=== PATIENT | female | born 1950 | race Caucasian/White ===

== ENCOUNTER 2022-11-09 20:07 | Inpatient (IN) | payer MEDICARE, MEDICAID, SELFPAY ==
--- NOTE | ~2022-11-09 | XR_ITS ---
EXAMINATION: XR CHEST CLINICAL INFORMATION: Hypoxia. COMPARISON: November 09, 2022. TECHNIQUE: Portable AP view of the chest was obtained. XR/XR chest 1V FINDINGS/IMPRESSION: There is no acute radiographic finding. No focal infiltrate, effusion, pneumothorax is seen. There is a question of mild prominence of the pulmonary veins in their nondependent portions, raising the possibility of pulmonary venous hypertension. The lungs may be mildly hyperinflated, raising the possibility of COPD. The cardiac silhouette is poorly evaluated. The aorta is atherosclerotic. Mild thoracic spinal dextrocurvature.
--- NOTE | ~2022-11-09 | XR_ITS ---
EXAMINATION: XR CHEST CLINICAL INFORMATION: Fever and confusion. COMPARISON: Chest x-ray 04/27/2018 TECHNIQUE: 2 views of the chest were obtained. FINDINGS: Hyperinflation of lungs. No acute airspace disease. No pulmonary vascular congestion. No pleural effusion or pneumothorax. Heart size is normal. The cardiac and mediastinal contours are normal. XR/XR chest 2V IMPRESSION: Hyperinflation of lungs. No acute abnormality of chest.
--- NOTE | ~2022-11-09 | CT_ITS ---
EXAMINATION: CT HEAD WITHOUT CONTRAST CLINICAL INFORMATION: Altered mental status. COMPARISON: 04/27/2018 TECHNIQUE: Multidetector volumetric imaging of the head was performed without intravenous contrast material. This CT examination was performed using dose optimization techniques as appropriate, variously including the following: *Automated exposure control *Adjustment of mA and/or kV according to patient size (this includes techniques or standardized protocols for targeted exams where dose is matched to indication/reason for exam; i.e. extremities or head) *Use of iterative reconstruction technique Dose: 600 mGy-cm FINDINGS: There is no evidence of acute intracranial hemorrhage or territorial infarction. No abnormal mass-effect or midline shift is seen. [place] to white matter differentiation is well preserved. No extra axial fluid collections. There is relative prominence of the lateral and third ventricles, out of portion to the cortical sulci. Callosal angle measures 70 degrees . Marked confluent hypoattenuation in the subcortical and periventricular white matter may be due to chronic microangiopathy or, alternatively, transependymal CSF flow. Small bilateral basal ganglia lacunar infarcts are again noted. Calcific atherosclerosis is present within the cavernous segments of the internal carotid arteries. The soft tissues and osseous structures are normal. Globes are aphakic. The sinuses and mastoid air cells are clear. CT/CT head/brain wo IV con IMPRESSION: 1. No acute intracranial pathology. 2. Ventricular prominence is out of proportion to the cortical sulci, raising the possibility of related to indicate hydrocephalus (NPH). Consider correlation with MRI CSF flow study if this correlates clinically. 3. Marked confluent hypoattenuation in the subcortical and periventricular white matter may be due to chronic microangiopathy or, alternatively, transependymal CSF flow.
--- NOTE | 2022-11-09 20:11 | ECG_ITS ---
Test Reason : AMS Blood Pressure : / mmHG Vent. Rate : 095 BPM Atrial Rate : 095 BPM P-R Int : 100 ms QRS Dur : 084 ms QT Int : 330 ms P-R-T Axes : 076 064 -30 degrees QTc Int : 414 ms Artifact in tracing Sinus rhythm with short MD with Premature supraventricular complexes Minimal voltage criteria for LVH, may be normal variant ( Sokolow-Guzman ) ST & T wave abnormality, consider lateral ischemia Abnormal ECG When compared with ECG of 27-APR-2018 12:11, Premature supraventricular complexes are now Present Non-specific change in ST segment in Inferior leads Nonspecific T wave abnormality now evident in Inferior leads Referred By: Aubree Pires Electronically Signed By:Tommie Coffey
[2022-11-09 20:23] VITALS: BP 186/85; BP 187/90; PULSE 86; PULSE 91; RESP 20; TEMP 37.6; O2SAT 95; O2SAT 97; BMI 18.2
--- NOTE | 2022-11-09 20:31 | PC.NURSE ---
PT A&Ox4, reports granddaughter called EMS but states I'm feeling fine . Per granddaughter PT was feeling warm to touch, was having some confusion and weakness, onset was today. PT oral temp 99.6. Denies any pain. 87% on RA, placed on 2L via NC. Recheck rectal temp 100.2. Provider notified. New orders.
[2022-11-09 20:59] LABS: MANUAL DIFF FLAG NO
[2022-11-09 21:02] LABS: Basophils Percent Auto 0.9 % (0-2); Eosinophils Percent Auto 0.7 % (0-4); Hematocrit 43.6 % (37.0-47.0); Imm Gran Abs Auto 0.01 X10*3/uL (0.00-0.03); Imm Gran Pct Auto 0.2 % (0.0-0.4); Lymphocytes Absolute Auto 0.7 X10*3/uL (1.2-4.9); Mean Corpuscular HGB Conc 32.1 g/dl (31.0-35.0); Mean Corpuscular Hemoglobin 30.8 pg (27.0-33.0); Mean Platelet Volume 9.8 fL (9.4-12.3); Monocytes Absolute Auto 0.7 X10*3/uL (0.1-1.2); Monocytes Percent Auto 14.4 % (2-11); Neutrophils Absolute Auto 3.2 x10*3/uL (2.0-8.3); Neutrophils Percent Auto 68.8 % (45-73); Platelet Count 200 X10*3/uL (160-400); Red Blood Count 4.54 X10*6/uL (4.20-5.50); Red Cell Distribution Width 13.3 % (11.0-16.0); White Blood Count 4.6 X10*3/uL (4.8-10.8)
--- NOTE | 2022-11-09 21:10 | ED.AMS ---
HPI - Altered Mental Status General Chief Complaint: Altered Mental Status Stated Complaint: fever and confusion Time Seen by Provider: 11/09/22 20:46 Source: patient and family (Granddaughter) Mode of arrival: EMS History of Present Illness HPI narrative: 72-year-old female who is brought in by ambulance with concerns regarding increased confusion and shaking. Patient has a past medical history of everyday smoker, COPD, hypertension, UTI and stroke. On evaluation patient denies any fever chills, nausea or vomiting, shortness of breath or chest pain but states she has had urinary frequency. Related Data Allergies Allergy/AdvReac Type Severity Reaction Status Date / Time No Known Allergies Allergy Unverified 06/23/20 19:31 [No Known Allergies*] Review of Systems Review of Systems: Pertinent positives and negatives as stated in HPI PMFSH Past Medical History Source: nursing notes reviewed Social History Social History Alcohol intake: current Alcohol intake frequency: 0-2 drinks per day Alcohol type: beer Smoked in Last 30 Days: Yes Use of substances other than those prescribed or required for medical reasons: No Advance Directives: No Advance Directives Information Provided: No Physical Exam ED Vital Signs: Vital Signs - 24 hr 11/09/22 20:23 11/09/22 21:30 Temperature 99.6 F 100.2 F Pulse Rate 91 96 Respiratory Rate 20 20 Blood Pressure 187/90 H 192/121 H Pulse Oximetry 97 91 L Oxygen Delivery Method Nasal Cannula Room Air BMI result Body Mass Index 18.2 VITAL SIGNS: Reviewed. GENERAL: Chronically ill, frail, in no acute distress. HEAD: Normocephalic/atraumatic EYES: PERRLA, EOMI EARS: Ext canals without abnormality OROPHARYNX: no oral lesions noted, posterior pharynx clear LUNGS: Decreased breath sounds on the right base, no tachypnea, no expiratory wheeze/rhonchi SpO2<97> on room air CARDIOVASCULAR: Regular rate and rhythm without noted murmurs, no JVD or lower extremity edema. ABDOMEN: Soft, non-tender, non-distended with bowel sounds. MUSCULOSKELETAL: No tenderness, deformities, or effusions noted on gross inspection. EXTREMITIES: No cyanosis, clubbing or edema. SKIN: Inspection of the skin reveals no rashes NEUROLOGIC: Alert and oriented x 3. Strength and sensation to light touch were grossly intact x 4, no facial asymmetry, no pronator drift, cranial nerves 2-12 are grossly intact. Medications Administered Generic Name Dose Route Start Last Admin Trade Name Freq PRN Reason Stop Dose Admin Sodium Chloride 1,000 mls @ 999 mls/hr 11/09/22 21:15 11/09/22 21:39 Ns IV 11/09/22 22:15 999 mls/hr .Q1H1M JUAN Administration Discontinued Medications Generic Name Dose Route Start Last Admin Trade Name Freq PRN Reason Stop Dose Admin Acetaminophen 975 mg 11/09/22 21:43 11/09/22 21:48 Acetaminophen 325 Mg Tablet PO 11/09/22 21:44 975 mg ONCE ONE Administration Amlodipine Besylate 5 mg 11/09/22 21:20 11/09/22 21:34 Amlodipine Besylate 5 Mg Tablet PO 11/09/22 21:21 5 mg ONCE ONE Administration Protocol Medical Decision Making Medical Decision Making MDM Narrative: 2113: 72-year-old female with suspected infection, nonfocal. Review of all investigations my interpretation is patient has AMS, COVID positive, UTI. Patient received antibiotics as well as IV fluids and is otherwise admitted. Differential Diagnosis Differential Diagnoses: The differential diagnosis associated with the presentation includes Please see the discussion above Admission/Observation Consideration of admission/observation: Escalation of care including admission/observation considered Due to age and comorbidities will consider admission. Consult Healthcare Provider Management of the patient was discussed with: Hospitalist 2200: I discussed case with inpatient hospitalist who accepts admission. Lab Data MDM Lab Attestation statement: I reviewed the patient's lab results. Please see the discussion above 11/09/22 20:53 11/09/22 20:53 Labs: Lab Results 11/09/22 11/09/22 11/09/22 Range/Units 20:44 20:53 20:53 WBC 4.6 L (4.8-10.8) X10*3/uL RBC 4.54 (4.20-5.50) X10*6/uL Hgb 14.0 (12.0-16.0) g/dl Hct 43.6 (37.0-47.0) % MCV 96.0 (80.0-98.0) fL MCH 30.8 (27.0-33.0) pg MCHC 32.1 (31.0-35.0) g/dl RDW 13.3 (11.0-16.0) % Plt Count 200 (160-400) X10*3/uL MPV 9.8 (9.4-12.3) fL Immature Gran % (Auto) 0.2 (0.0-0.4) % Neut % (Auto) 68.8 (45-73) % Lymph % (Auto) 15.0 L (20-40) % [place] % (Auto) 14.4 H (2-11) % Eos % (Auto) 0.7 (0-4) % Baso % (Auto) 0.9 (0-2) % Lymph # (Auto) 0.7 L (1.2-4.9) X10*3/uL [place] # (Auto) 0.7 (0.1-1.2) X10*3/uL Eos # (Auto) 0.0 (0.0-0.4) X10*3/uL Baso # (Auto) 0.0 (0.0-0.2) X10*3/uL Abs Immat Gran (auto) 0.01 (0.00-0.03) X10*3/uL Absolute Neuts (auto) 3.2 (2.0-8.3) x10*3/uL Absolute Nucleated RBC 0.000 (0.0-0.012) X10*3/uL Nucleated RBC % (auto) 0.0 (0.0-0.2) /100WBC VBG pH (7.32-7.43) VBG pCO2 mmHg VBG pO2 mmHg VBG HCO3 (22-26) mmol/L VBG O2 Saturation % VBG Base Excess mmol/L Sodium (135-145) mmol/L Potassium (3.3-5.1) mmol/L Chloride (96-108) mmol/L Carbon Dioxide (22-29) mmol/L Anion Gap (12-20) BUN (9-16) mg/dL Creatinine (0.5-1.4) mg/dL Estim Creat Clear Calc Estimated GFR Random Glucose (60-115) mg/dL Lactic Acid 0.8 (0.5-2.0) mmol/L Calcium (8.4-10.2) mg/dL Magnesium (1.6-2.6) mg/dL Total Bilirubin (0.0-1.0) mg/dL AST (5-31) U/L ALT (0-31) U/L Alkaline Phosphatase (39-117) U/L Total Protein (6.5-8.0) g/dL Albumin (3.5-5.0) g/dL Urine Color Urine Appearance Urine pH (5.0-9.0) Ur Specific [place] (1.005-1.025) Urine Protein (Neg-Trace) mg/dL Urine Glucose (UA) (Negative) mg/dL Urine Ketones (Negative) mg/dL Urine Blood (Negative) Urine Nitrite (Negative) Ur Leukocyte Esterase (Negative) Urine RBC (0-2) /HPF Urine WBC (0-5) /HPF Ur Squamous Epith Cells (0-2) /HPF Urine Bacteria (None Seen) Hyaline Casts (0-2) /LPF Influenza Type A (PCR) NEGATIVE (Negative) Influenza Type B (PCR) NEGATIVE (Negative) RSV RNA Qual (PCR) NEGATIVE (Negative) SARS-CoV-2 RNA (RT-PCR) POSITIVE A (Negative) 11/09/22 11/09/22 11/09/22 Range/Units 20:53 21:26 21:29 WBC (4.8-10.8) X10*3/uL RBC (4.20-5.50) X10*6/uL Hgb (12.0-16.0) g/dl Hct (37.0-47.0) % MCV (80.0-98.0) fL MCH (27.0-33.0) pg MCHC (31.0-35.0) g/dl RDW (11.0-16.0) % Plt Count (160-400) X10*3/uL MPV (9.4-12.3) fL Immature Gran % (Auto) (0.0-0.4) % Neut % (Auto) (45-73) % Lymph % (Auto) (20-40) % [place] % (Auto) (2-11) % Eos % (Auto) (0-4) % Baso % (Auto) (0-2) % Lymph # (Auto) (1.2-4.9) X10*3/uL [place] # (Auto) (0.1-1.2) X10*3/uL Eos # (Auto) (0.0-0.4) X10*3/uL Baso # (Auto) (0.0-0.2) X10*3/uL Abs Immat Gran (auto) (0.00-0.03) X10*3/uL Absolute Neuts (auto) (2.0-8.3) x10*3/uL Absolute Nucleated RBC (0.0-0.012) X10*3/uL Nucleated RBC % (auto) (0.0-0.2) /100WBC VBG pH 7.32 (7.32-7.43) VBG pCO2 59 mmHg VBG pO2 38 mmHg VBG HCO3 31 H (22-26) mmol/L VBG O2 Saturation 49.0 % VBG Base Excess 3.7 mmol/L Sodium 138 (135-145) mmol/L Potassium 4.6 (3.3-5.1) mmol/L Chloride 100 (96-108) mmol/L Carbon Dioxide 25 (22-29) mmol/L Anion Gap 18 (12-20) BUN 26 H (9-16) mg/dL Creatinine 0.80 (0.5-1.4) mg/dL Estim Creat Clear Calc 45.6 Estimated GFR > 60 Random Glucose 112 (60-115) mg/dL Lactic Acid (0.5-2.0) mmol/L Calcium 9.3 (8.4-10.2) mg/dL Magnesium 2.0 (1.6-2.6) mg/dL Total Bilirubin 0.5 (0.0-1.0) mg/dL AST 29 (5-31) U/L ALT 18 (0-31) U/L Alkaline Phosphatase 92 (39-117) U/L Total Protein 7.4 (6.5-8.0) g/dL Albumin 4.3 (3.5-5.0) g/dL Urine Color Yellow Urine Appearance Cloudy Urine pH 6.0 (5.0-9.0) Ur Specific [place] 1.015 (1.005-1.025) Urine Protein 30 (1+) H (Neg-Trace) mg/dL Urine Glucose (UA) Negative (Negative) mg/dL Urine Ketones Trace (Negative) mg/dL Urine Blood Trace H (Negative) Urine Nitrite Positive H (Negative) Ur Leukocyte Esterase Moderate (2+) H (Negative) Urine RBC >20 H (0-2) /HPF Urine WBC 11-20 H (0-5) /HPF Ur Squamous Epith Cells 11-20 (0-2) /HPF Urine Bacteria 4+ (None Seen) Hyaline Casts 0-2 (0-2) /LPF Influenza Type A (PCR) (Negative) Influenza Type B (PCR) (Negative) RSV RNA Qual (PCR) (Negative) SARS-CoV-2 RNA (RT-PCR) (Negative) Independent Interpretation I performed an independent interpretation of an: EKG Interpretation: Sinus rhythm, HR-95, no STEMI, NE/QRS/QTC are within normal limits. Radiology Impression Radiologist Impression: My interpretation is in agreement with radiology's impression of the imaging studies. Chronic Conditions Patient?s care impacted by: Hypertension COPD Critical Care Time Critical Care Time Critical Care Time: Yes Total Critical Care Time: 30 Attestation: I personally attest to this time spent taking care of the patient. Discharge Plan Discharge Clinical Impression: Altered mental status, Lab test positive for detection of COVID-19 virus, Acute UTI Patient Disposition: Admitted As Inpatient
[2022-11-09 21:11] LABS: Lactic Acid 0.8 mmol/L (0.5-2.0)
[2022-11-09 21:19] LABS: Alanine Aminotransferase 18 U/L (0-31); Albumin Level 4.3 g/dL (3.5-5.0); Alkaline Phosphatase 92 U/L (39-117); Anion Gap 18 (12-20); Aspartate Amino Transferase 29 U/L (5-31); Bilirubin Total 0.5 mg/dL (0.0-1.0); Blood Urea Nitrogen 26 mg/dL (9-16); Calcium 9.3 mg/dL (8.4-10.2); Carbon Dioxide 25 mmol/L (22-29); Chloride 100 mmol/L (96-108); Creatinine Clr Calc Pharmacy 45.6; Estimated Glomerular Filt Rate > 60; Glucose Random 112 mg/dL (60-115); Potassium 4.6 mmol/L (3.3-5.1); Sodium 138 mmol/L (135-145); Total Protein 7.4 g/dL (6.5-8.0)
[2022-11-09 21:27] LABS: Influenza A PCR NEGATIVE (Negative); Influenza B PCR NEGATIVE (Negative); Resp Syncy Virus RNA Qual PCR NEGATIVE (Negative); SARS COV2 PCR INHOUSE POSITIVE (Negative)
[2022-11-09 21:30] VITALS: BP 192/121; PULSE 96; RESP 20; TEMP 37.9; O2SAT 91
[2022-11-09 21:32] LABS: Venous Blood Gas Refer to POC result
[2022-11-09 21:32] LABS: VBG Base Excess 3.7 mmol/L; VBG HCO3 31 mmol/L (22-26); VBG pCO2 59 mmHg; VBG pH 7.32 (7.32-7.43); VBG pO2 38 mmHg
[2022-11-09] MEDS: amLODIPine Besylate 5 MG TABLET PO (21:34)
[2022-11-09 21:36] LABS: Appearance Urine Cloudy; Color Urine Yellow; Glucose Urine UA Negative (Negative); Leukocyte Esterase Urine Moderate (2+) (Negative); Nitrite Urine Positive (Negative); Specific Gravity - Urine 1.015 (1.005-1.025); UMIC TRIGGER UACC YES; Urine Blood Trace (Negative); Urine Ketones Trace mg/dL (Negative); Urine Protein 30 (1+) mg/dL (Neg-Trace)
[2022-11-09] MEDS: 0.9 % Sodium Chloride 1,000 ML 999 ML IV (21:39)
[2022-11-09 21:46] LABS: RBC Urine >20 /HPF (0-2)
[2022-11-09 21:47] LABS: Bacteria Urine 4+ (None Seen); Hyaline Casts Urine 0-2 /LPF (0-2); UACC Culture Trigger YES
[2022-11-09] MEDS: Acetaminophen 325 MG TABLET 975 MG PO (21:48)
--- NOTE | 2022-11-09 22:15 | PM.IMHP ---
History of Present Illness Date of Service: 11/09/22 Chief Complaint: Altered mentation This is a 72-year-old female with pertinent history of mood disorder, essential hypertension, COPD not on home oxygen, mixed hyperlipidemia who was brought to the emergency department for evaluation of confusion. As per the grand daughter at bedside, patient was found to be confused throughout the day. At her baseline, patient is awake, alert and oriented x3. The patient does not know why she is in the hospital and reports no new complaints. The granddaughter endorses increased urinary frequency. Patient also had fevers and chills throughout the day. No shortness of breath. Unable to obtain review of systems. Review of Systems Review of Systems: Yes Unobtainable due to mental condition [facility] Medical History COPD (chronic obstructive pulmonary disease) Hyperlipidemia Hypertension Mood disorder Pertinent family history: Not significant Social History Alcohol intake: current Alcohol intake frequency: 0-2 drinks per day Alcohol type: beer Smoked in Last 30 Days: Yes Use of substances other than those prescribed or required for medical reasons: No Advance Directives: No Advance Directives Information Provided: No Meds Allergies Allergy/AdvReac Type Severity Reaction Status Date / Time No Known Allergies Allergy Unverified 06/23/20 19:31 [No Known Allergies*] Active Medications: Current Medications Acetaminophen (Acetaminophen 325 Mg Tablet) 650 mg PO Q6H PRN PRN Reason: Pain, Mild (Pain Scale 1-3) Albuterol/Ipratropium (Albuterol/Iprat 2.5/0.5mg 3 Ml Ampul.Neb) 3 ml INHALE RQ4H WHILE AWAKE JUAN Dexamethasone Sodium Phosphate (Dexamethasone Sod Phosphate 4 Mg/Ml Vial) 6 mg IVPUSH DAILY JUAN Enoxaparin Sodium (Enoxaparin Sodium 40 Mg/0.4 Ml Syringe) 40 mg SUBCUT Q24H JUAN Ceftriaxone Sodium 1 gm/ (Sodium Chloride) 50 mls @ 100 mls/hr IV ONCE ONE Stop: 11/09/22 22:18 Ceftriaxone Sodium 1 gm/ (Sodium Chloride) 50 mls @ 100 mls/hr IV Q24H JUAN Melatonin (Melatonin 3 Mg Tablet) 6 mg PO BEDTIME PRN PRN Reason: Insomnia Ondansetron HCl (Ondansetron Hcl 4 Mg/2 Ml Vial) 4 mg IVPUSH Q8H PRN PRN Reason: Nausea and Vomiting Pharmacy Consult (Consult Rx Perform Med Rec) 1 each MISCELLANE ONCE PRN PRN Reason: Consult order Sodium Chloride (0.9 % Sodium Chloride Flush 3 Ml Syringe) 3 ml IVFLUSH [facility] Medications Medication Instructions Recorded Confirmed Last Taken Type buspirone 5 mg tablet 1 - 2 tab PO BID 11/09/22 11/09/22 Unknown History lisinopril 20 mg tablet 1 tab PO DAILY 11/09/22 11/09/22 Unknown History simvastatin 80 mg tablet 1 tab PO BEDTIME 11/09/22 11/09/22 Unknown History Physical Exam Vital Signs and Narrative: Vital Signs: Last Vital Signs Temp 100.2 F 11/09/22 21:30 Pulse 96 11/09/22 21:30 Resp 20 11/09/22 21:30 BP 192/121 H 11/09/22 21:30 Pulse Ox 91 L 11/09/22 21:30 O2 Del Method 11/09/22 21:30 Oxygen Flow Rate 2 11/09/22 20:23 BMI result Body Mass Index 18.2 Elderly female lying in bed on 2 L supplemental oxygen Neck supple, no JVD Regular rate and rhythm, S1-S2 heard Regular breath sounds bilaterally, no wheezing or crackles appreciated Abdomen soft nontender, no guarding, no rigidity Patient is awake, alert and oriented to self, place, disoriented to time and person ; no focal motor deficit Psych: Normal mood No pedal edema Results Labs 11/09/22 20:53 11/09/22 20:53 Labs: Laboratory Results - last 24 hr 11/09/22 11/09/22 11/09/22 20:44 20:53 20:53 MCV 96.0 MCH 30.8 MCHC 32.1 RDW 13.3 Plt Count 200 MPV 9.8 Immature Gran % (Auto) 0.2 Neut % (Auto) 68.8 Lymph % (Auto) 15.0 L [place] % (Auto) 14.4 H Eos % (Auto) 0.7 Baso % (Auto) 0.9 Lymph # (Auto) 0.7 L [place] # (Auto) 0.7 Eos # (Auto) 0.0 Baso # (Auto) 0.0 Abs Immat Gran (auto) 0.01 Absolute Neuts (auto) 3.2 Absolute Nucleated RBC 0.000 Nucleated RBC % (auto) 0.0 VBG pH VBG pCO2 VBG pO2 VBG HCO3 VBG O2 Saturation VBG Base Excess Anion Gap Estim Creat Clear Calc Estimated GFR Random Glucose Lactic Acid 0.8 Calcium Magnesium Total Bilirubin AST ALT Alkaline Phosphatase Total Protein Albumin Urine Color Urine Appearance Urine pH Ur Specific [place] Urine Protein Urine Glucose (UA) Urine Ketones Urine Blood Urine Nitrite Ur Leukocyte Esterase Urine RBC Urine WBC Ur Squamous Epith Cells Urine Bacteria Hyaline Casts Influenza Type A (PCR) NEGATIVE Influenza Type B (PCR) NEGATIVE RSV RNA Qual (PCR) NEGATIVE SARS-CoV-2 RNA (RT-PCR) POSITIVE A 11/09/22 11/09/22 11/09/22 20:53 21:26 21:29 MCV MCH MCHC RDW Plt Count MPV Immature Gran % (Auto) Neut % (Auto) Lymph % (Auto) [place] % (Auto) Eos % (Auto) Baso % (Auto) Lymph # (Auto) [place] # (Auto) Eos # (Auto) Baso # (Auto) Abs Immat Gran (auto) Absolute Neuts (auto) Absolute Nucleated RBC Nucleated RBC % (auto) VBG pH 7.32 VBG pCO2 59 VBG pO2 38 VBG HCO3 31 H VBG O2 Saturation 49.0 VBG Base Excess 3.7 Anion Gap 18 Estim Creat Clear Calc 45.6 Estimated GFR > 60 Random Glucose 112 Lactic Acid Calcium 9.3 Magnesium 2.0 Total Bilirubin 0.5 AST 29 ALT 18 Alkaline Phosphatase 92 Total Protein 7.4 Albumin 4.3 Urine Color Yellow Urine Appearance Cloudy Urine pH 6.0 Ur Specific [place] 1.015 Urine Protein 30 (1+) H Urine Glucose (UA) Negative Urine Ketones Trace Urine Blood Trace H Urine Nitrite Positive H Ur Leukocyte Esterase Moderate (2+) H Urine RBC >20 H Urine WBC 11-20 H Ur Squamous Epith Cells 11-20 Urine Bacteria 4+ Hyaline Casts 0-2 Influenza Type A (PCR) Influenza Type B (PCR) RSV RNA Qual (PCR) SARS-CoV-2 RNA (RT-PCR) Imaging Radiologist's Impressions: Impressions Chest X-Ray 11/09/22 20:38 IMPRESSION: Hyperinflation of lungs. No acute abnormality of chest. Head CT 11/09/22 21:03 IMPRESSION: 1. No acute intracranial pathology. 2. Ventricular prominence is out of proportion to the cortical sulci, raising the possibility of related to indicate hydrocephalus (NPH). Consider correlation with MRI CSF flow study if this correlates clinically. 3. Marked confluent hypoattenuation in the subcortical and periventricular white matter may be due to chronic microangiopathy or, alternatively, transependymal CSF flow. Assessment and Plan (1) Hypoxic: Status: Acute (2) Acute UTI: Status: Acute (3) Lab test positive for detection of COVID-19 virus: Status: Acute (4) Altered mental status: Status: Acute Plan This is a 72-year-old female with pertinent history of mood disorder, essential hypertension, COPD not on home oxygen, mixed hyperlipidemia who was brought to the emergency department for evaluation of confusion. #. Acute hypoxemic respiratory failure secondary to COVID-19 infection: Will admit patient with airborne and contact precautions. Initiating Decadron in the setting of hypoxemia. No concern for bacterial superinfection. #. Acute UTI: Initiating IV Rocephin. Follow urine cultures #. acute metabolic encephalopathy in the setting of above: #. Hypertensive urgency: Resume home antihypertensives #. imaging evidence of ventricular prominence: Obtaining MRI to rule out NPH #. mood disorder: Continue home mood stabilizers #. mixed hyperlipidemia: On statin #. COPD: No exacerbation on admission. Continue home inhaler. DuoNeb p.r.n. med rec pending DVT prophylaxis: Lovenox 40 mg daily Full code. Discussed with patient and granddaughter at bedside Cardiac diet Admit as inpatient and will require two night minimum hospital stay for IV antibiotics and supplemental oxygen Time Spent With Patient Time: Total time managing care of this patient today ____ minutes. Quality Stroke Does the patient have a stroke diagnosis?: No VTE Prior VTE?: No VTE Risk Level:: Medical - moderate - high VTE Device Contraindication: Treatment Not Indicated VTE Drug Contraindication: N/A - Med Ordered
[2022-11-09] MEDS: cefTRIAXone sodium 1 GM in 0.9 % Sodium Chloride 50 ML IV (22:28)
[2022-11-09] MEDS: dexAMETHasone sod phosphate 4 MG/ML VIAL 6 MG IVPUSH (22:28)
--- NOTE | 2022-11-09 22:29 | PHA.MEDREC ---
Pharmacy Consult ? Medication Reconciliation Pharmacy has completed the medication reconciliation.
[2022-11-09 22:30] VITALS: BP 185/89; PULSE 94; RESP 18; TEMP 36.7; O2SAT 95
[2022-11-09] MEDS: Labetalol HCL 100 MG/20 ML VIAL 10 MG IVPUSH (22:32)
[2022-11-09 22:42] VITALS: BP 142/69; PULSE 77; RESP 18; O2SAT 94
[2022-11-09 23:11] VITALS: TEMP 36.7
--- NOTE | 2022-11-09 23:50 | PC.NURSE ---
PT declined levonox in inection. States I don't want another needle .
[2022-11-10] VITALS (13 sets, daily range): BP systolic 136–154; BP diastolic 70–94; PULSE 71–92; RESP 14–24; TEMP 36.4–36.8; O2SAT 86–98
[2022-11-10] MEDS: 0.9 % Sodium Chloride Flush 3 ML SYRINGE IVFLUSH ×3 (00:18→18:16)
--- NOTE | 2022-11-10 05:30 | PC.NURSE ---
PT resting comfortably, denies any pain. Oxygen titrated to 1L via NC, o2 sat 93%.
[2022-11-10 05:45] LABS: MANUAL DIFF FLAG NO
[2022-11-10 05:49] LABS: Basophils Percent Auto 0.6 % (0-2); Hematocrit 39.8 % (37.0-47.0); Hemoglobin 12.7 g/dl (12.0-16.0); Imm Gran Abs Auto 0.01 X10*3/uL (0.00-0.03); Imm Gran Pct Auto 0.3 % (0.0-0.4); Lymphocytes Absolute Auto 0.6 X10*3/uL (1.2-4.9); Lymphocytes Percent Auto 17.4 % (20-40); Mean Corpuscular HGB Conc 31.9 g/dl (31.0-35.0); Mean Corpuscular Hemoglobin 30.6 pg (27.0-33.0); Mean Corpuscular Volume 95.9 fL (80.0-98.0); Mean Platelet Volume 9.9 fL (9.4-12.3); Monocytes Absolute Auto 0.2 X10*3/uL (0.1-1.2); Monocytes Percent Auto 5.5 % (2-11); Neutrophils Absolute Auto 2.8 x10*3/uL (2.0-8.3); Neutrophils Percent Auto 76.2 % (45-73); Platelet Count 182 X10*3/uL (160-400); Red Blood Count 4.15 X10*6/uL (4.20-5.50); Red Cell Distribution Width 13.2 % (11.0-16.0); White Blood Count 3.6 X10*3/uL (4.8-10.8)
[2022-11-10 06:05] LABS: Anion Gap 12 (12-20); Blood Urea Nitrogen 19 mg/dL (9-16); Calcium 8.4 mg/dL (8.4-10.2); Carbon Dioxide 26 mmol/L (22-29); Chloride 106 mmol/L (96-108); Creatinine Clr Calc Pharmacy 51.3; Estimated Glomerular Filt Rate > 60; Glucose Random 162 mg/dL (60-115); Potassium 4.1 mmol/L (3.3-5.1); Sodium 140 mmol/L (135-145)
[2022-11-10] MEDS: dexAMETHasone sod phosphate 4 MG/ML VIAL 6 MG IVPUSH (08:24)
--- NOTE | 2022-11-10 08:31 | PC.NURSE ---
pt is a/o x 2 speaks in full sentences. lungs - diminshed all lobes. heart sounds - regular. abd soft and non-tender, bs + x 4 quads. no edema noted. 02 at 1L/m via n/c at 94%. pt's grand-daughter is at bedside. pt/grand-daughter aware of plan of care.
[2022-11-10] MEDS: Albuterol/Iprat 2.5/0.5MG 3 ML AMPUL.NEB INHALE (09:53)
--- NOTE | 2022-11-10 10:31 | HO.PM.IMPN ---
Subjective Subjective Date of Service: 11/10/22 Review of Systems Follow up confusion, UTI feeling better today denies N,V,D Physical Exam Vital Signs: Vital Signs: Last Vital Signs Temp 97.6 F 11/10/22 07:21 Pulse 75 11/10/22 10:01 Resp 16 11/10/22 10:01 BP 151/94 H 11/10/22 10:01 Pulse Ox 98 11/10/22 10:01 O2 Del Method 11/10/22 10:01 O2 Flow Rate 0.5 11/10/22 07:21 Oxygen Flow Rate 2 11/09/22 20:23 BMI result Body Mass Index 18.2 Appearing in no acute distress lung sounds are clear to auscultation heart regular rate rhythm, clear S1, S2 positive bowel sounds, abdomen is soft, nontender neuro patient is alert x3, no focal deficits Objective Data Active Medications Acetaminophen (Acetaminophen 325 Mg Tablet) 650 mg PO Q6H PRN PRN Reason: Pain, Mild (Pain Scale 1-3) Albuterol Sulfate (Albuterol Sulfate 90 Mcg 8 Gm Inhaler) 2 puff INHALE RQ4H PRN PRN Reason: Wheezing Buspirone HCl (Buspirone Hcl 5 Mg Tablet) 5 mg PO BID [facility] Dexamethasone Sodium Phosphate (Dexamethasone Sod Phosphate 4 Mg/Ml Vial) 6 mg IVPUSH DAILY [facility] Last Admin: 11/10/22 08:24 Dose: 6 mg Documented By: NEHEMIAH Enoxaparin Sodium (Enoxaparin Sodium 40 Mg/0.4 Ml Syringe) 40 mg SUBCUT Q24H [facility] Last Admin: 11/09/22 23:45 Dose: Not Given Documented By: NABEEL Non-Admin Reason: Patient Refused Ceftriaxone Sodium 1 gm/ (Sodium Chloride) 50 mls @ 100 mls/hr IV Q24H [facility] Lisinopril (Lisinopril 20 Mg Tablet) 20 mg PO DAILY [facility]; Protocol Melatonin (Melatonin 3 Mg Tablet) 6 mg PO BEDTIME PRN PRN Reason: Insomnia Non-Formulary Medication (Simvastatin) 1 tab PO BEDTIME [facility] Ondansetron HCl (Ondansetron Hcl 4 Mg/2 Ml Vial) 4 mg IVPUSH Q8H PRN PRN Reason: Nausea and Vomiting Pharmacy Consult (Consult Rx Perform Med Rec) 1 each MISCELLANE ONCE PRN PRN Reason: Consult order Sodium Chloride (0.9 % Sodium Chloride Flush 3 Ml Syringe) 3 ml IVFLUSH QSHIFT [facility] Last Admin: 11/10/22 08:25 Dose: 3 ml Documented By: SCOC Labs 11/10/22 04:52 11/10/22 04:52 Labs: Laboratory Results - last 24 hr 11/09/22 11/09/22 11/09/22 20:44 20:53 20:53 MCV 96.0 MCH 30.8 MCHC 32.1 RDW 13.3 Plt Count 200 MPV 9.8 Immature Gran % (Auto) 0.2 Neut % (Auto) 68.8 Lymph % (Auto) 15.0 L [place] % (Auto) 14.4 H Eos % (Auto) 0.7 Baso % (Auto) 0.9 Lymph # (Auto) 0.7 L [place] # (Auto) 0.7 Eos # (Auto) 0.0 Baso # (Auto) 0.0 Abs Immat Gran (auto) 0.01 Absolute Neuts (auto) 3.2 Absolute Nucleated RBC 0.000 Nucleated RBC % (auto) 0.0 VBG pH VBG pCO2 VBG pO2 VBG HCO3 VBG O2 Saturation VBG Base Excess Anion Gap Estim Creat Clear Calc Estimated GFR Random Glucose Lactic Acid 0.8 Calcium Magnesium Total Bilirubin AST ALT Alkaline Phosphatase Total Protein Albumin Urine Color Urine Appearance Urine pH Ur Specific [place] Urine Protein Urine Glucose (UA) Urine Ketones Urine Blood Urine Nitrite Ur Leukocyte Esterase Urine RBC Urine WBC Ur Squamous Epith Cells Urine Bacteria Hyaline Casts Influenza Type A (PCR) NEGATIVE Influenza Type B (PCR) NEGATIVE RSV RNA Qual (PCR) NEGATIVE SARS-CoV-2 RNA (RT-PCR) POSITIVE A 11/09/22 11/09/22 11/09/22 20:53 21:26 21:29 MCV MCH MCHC RDW Plt Count MPV Immature Gran % (Auto) Neut % (Auto) Lymph % (Auto) [place] % (Auto) Eos % (Auto) Baso % (Auto) Lymph # (Auto) [place] # (Auto) Eos # (Auto) Baso # (Auto) Abs Immat Gran (auto) Absolute Neuts (auto) Absolute Nucleated RBC Nucleated RBC % (auto) VBG pH 7.32 VBG pCO2 59 VBG pO2 38 VBG HCO3 31 H VBG O2 Saturation 49.0 VBG Base Excess 3.7 Anion Gap 18 Estim Creat Clear Calc 45.6 Estimated GFR > 60 Random Glucose 112 Lactic Acid Calcium 9.3 Magnesium 2.0 Total Bilirubin 0.5 AST 29 ALT 18 Alkaline Phosphatase 92 Total Protein 7.4 Albumin 4.3 Urine Color Yellow Urine Appearance Cloudy Urine pH 6.0 Ur Specific [place] 1.015 Urine Protein 30 (1+) H Urine Glucose (UA) Negative Urine Ketones Trace Urine Blood Trace H Urine Nitrite Positive H Ur Leukocyte Esterase Moderate (2+) H Urine RBC >20 H Urine WBC 11-20 H Ur Squamous Epith Cells 11-20 Urine Bacteria 4+ Hyaline Casts 0-2 Influenza Type A (PCR) Influenza Type B (PCR) RSV RNA Qual (PCR) SARS-CoV-2 RNA (RT-PCR) 11/10/22 11/10/22 04:52 04:52 MCV 95.9 MCH 30.6 MCHC 31.9 RDW 13.2 Plt Count 182 MPV 9.9 Immature Gran % (Auto) 0.3 Neut % (Auto) 76.2 H Lymph % (Auto) 17.4 L [place] % (Auto) 5.5 Eos % (Auto) 0.0 Baso % (Auto) 0.6 Lymph # (Auto) 0.6 L [place] # (Auto) 0.2 Eos # (Auto) 0.0 Baso # (Auto) 0.0 Abs Immat Gran (auto) 0.01 Absolute Neuts (auto) 2.8 Absolute Nucleated RBC 0.000 Nucleated RBC % (auto) 0.0 VBG pH VBG pCO2 VBG pO2 VBG HCO3 VBG O2 Saturation VBG Base Excess Anion Gap 12 Estim Creat Clear Calc 51.3 Estimated GFR > 60 Random Glucose 162 H Lactic Acid Calcium 8.4 D Magnesium Total Bilirubin AST ALT Alkaline Phosphatase Total Protein Albumin Urine Color Urine Appearance Urine pH Ur Specific [place] Urine Protein Urine Glucose (UA) Urine Ketones Urine Blood Urine Nitrite Ur Leukocyte Esterase Urine RBC Urine WBC Ur Squamous Epith Cells Urine Bacteria Hyaline Casts Influenza Type A (PCR) Influenza Type B (PCR) RSV RNA Qual (PCR) SARS-CoV-2 RNA (RT-PCR) Assessment and Plan (1) Acute UTI: Status: Acute Plan This is a 72-year-old female with pertinent history of mood disorder, essential hypertension, COPD not on home oxygen, mixed hyperlipidemia who was brought to the emergency department for evaluation of confusion. COVID-19 infection no documented hypoxia Will admit patient with airborne and contact precautions.? Initiating Decadron No concern for bacterial superinfection. Acute UTI IV Rocephin.? Follow urine cultures Acute Toxic metabolic encephalopathy secondary to UTI treat underlying infection Hypertensive urgency Resume home antihypertensives Imaging evidence of ventricular prominence: Obtaining MRI to rule out NPH Mood disorder Continue home mood stabilizers Mixed hyperlipidemia statin COPD No exacerbation on admission.? Continue home inhaler. DVT prophylaxis: Lovenox 40 mg daily Full code.? Discussed with patient and granddaughter at bedside Attending Dr. Dave continued hospital stay for?IV antibiotics and supplemental oxygen Time Spent With Patient Time: Total time managing care of this patient today ____ minutes. Quality Stroke Does the patient have a stroke diagnosis?: No VTE Prior VTE?: No VTE Risk Level:: Medical - moderate - high VTE Device Contraindication: Treatment Not Indicated VTE Drug Contraindication: N/A - Med Ordered
--- NOTE | 2022-11-10 11:12 | MHC.CM.PN ---
Lives with son in her own home. Owns walker, can and shower bench. Family drives her to where she needs to go. No prior services. Family is requesting [facility] for nursing and PT (if qualifies for). CM to follow.
[2022-11-10] MEDS: lisinopriL 20 MG TABLET PO (11:21)
[2022-11-10] MEDS: Albuterol Sulfate 90 MCG 8 GM INHALER 2 PUFF INHALE (12:10)
--- NOTE | 2022-11-10 18:17 | PC.NURSE ---
Family in room IV came out of left AC. replaced IV in left forearm 20g. Patient denies any pain. Patient awaiting bed assignment.
[2022-11-10] MEDS: Melatonin 3 MG TABLET 6 MG PO (19:39)
[2022-11-10] MEDS: Atorvastatin Calcium 40 MG TABLET PO (19:39)
[2022-11-10] MEDS: busPIRone HCl 5 MG TABLET PO (19:39)
--- NOTE | 2022-11-10 23:01 | PC.NURSE ---
Dr. Lopes made aware pt de-stated to 87% on room air. Pt denies Sob, rest of pt vital signs are stable. Pt placed on 2 Liters nasal cannula to maintain pt oxygen saturation above 90% per Dr. Lopes. Pt SAMUELS x 4.
[2022-11-11] VITALS (8 sets, daily range): BP systolic 153–181; BP diastolic 82–108; PULSE 70–103; RESP 16–20; TEMP 36.4–37.5; O2SAT 85–99; BMI 18.2
[2022-11-11] MEDS: cefTRIAXone sodium 1 GM in 0.9 % Sodium Chloride 50 ML IV ×2 (00:03→23:21)
[2022-11-11] MEDS: 0.9 % Sodium Chloride Flush 3 ML SYRINGE IVFLUSH ×4 (00:06→20:14)
[2022-11-11] MEDS: Enoxaparin Sodium 40 MG/0.4 ML SYRINGE SUBCUT ×2 (00:09→23:20)
--- NOTE | 2022-11-11 00:10 | PC.NURSE ---
Pt SAMUELS x4 denies pain at this time. Pt medicated per Dec.
--- NOTE | 2022-11-11 04:35 | PC.NURSE ---
Pt pure wic not placed correctly. Pt noted to be incontinent of urine. Rn provided zen care and placed pure wic back in position.
--- NOTE | 2022-11-11 04:38 | PC.NURSE ---
Message sent to Dr. Lopes regarding pt bp 172/83 pulse 80.
--- NOTE | 2022-11-11 06:02 | PC.NURSE ---
Dr. Lopes made aware pt BP 174/108 pulse 80. Pt is asymptomatic at this time. Shital cyr MD.
[2022-11-11 07:52] LABS: Anion Gap 11 (12-20); Blood Urea Nitrogen 23 mg/dL (9-16); Calcium 8.7 mg/dL (8.4-10.2); Carbon Dioxide 29 mmol/L (22-29); Chloride 104 mmol/L (96-108); Creatinine Clr Calc Pharmacy 53.6; Estimated Glomerular Filt Rate > 60; Glucose Random 88 mg/dL (60-115); Potassium 3.6 mmol/L (3.3-5.1); Sodium 140 mmol/L (135-145)
[2022-11-11] MEDS: dexAMETHasone sod phosphate 4 MG/ML VIAL 6 MG IVPUSH (08:23)
[2022-11-11] MEDS: busPIRone HCl 5 MG TABLET PO ×2 (08:23→20:11)
[2022-11-11] MEDS: lisinopriL 20 MG TABLET PO (08:23)
--- NOTE | 2022-11-11 08:30 | PC.NURSE ---
pt is a/o x 3 no sob/mayo noted speaks in full sentences. lungs -diminished all lobes. heart sounds regular. abd soft and non-tender, bx + x 4 quads. no edema noted. pt aware of plan of care.
--- NOTE | 2022-11-11 09:36 | PC.NURSE ---
this rn spoke with and updated pt's daughter matty ([phone]).
--- NOTE | 2022-11-11 09:39 | HO.PM.IMPN ---
Subjective Subjective Date of Service: 11/11/22 Review of Systems Follow up confusion, UTI feeling better today denies N,V,D Physical Exam Vital Signs: Vital Signs: Last Vital Signs Temp 97.9 F 11/11/22 08:17 Pulse 72 11/11/22 08:17 Resp 18 11/11/22 05:59 BP 181/90 H 11/11/22 08:17 Pulse Ox 91 L 11/11/22 08:17 O2 Del Method 11/11/22 08:17 O2 Flow Rate 2 11/11/22 05:59 Oxygen Flow Rate 2 11/09/22 20:23 BMI result Body Mass Index 18.2 Appearing in no acute distress lung sounds are clear to auscultation heart regular rate rhythm, clear S1, S2 positive bowel sounds, abdomen is soft, nontender neuro patient is alert x3, no focal deficits Objective Data Active Medications Acetaminophen (Acetaminophen 325 Mg Tablet) 650 mg PO Q6H PRN PRN Reason: Pain, Mild (Pain Scale 1-3) Albuterol Sulfate (Albuterol Sulfate 90 Mcg 8 Gm Inhaler) 2 puff INHALE RQ4H PRN PRN Reason: Wheezing Last Admin: 11/10/22 12:10 Dose: 2 puff Documented By: JESSICA Atorvastatin Calcium (Atorvastatin Calcium 40 Mg Tablet) 40 mg PO BEDTIME [facility] Last Admin: 11/10/22 19:39 Dose: 40 mg Documented By: VINOD Buspirone HCl (Buspirone Hcl 5 Mg Tablet) 5 mg PO BID [facility] Last Admin: 11/11/22 08:23 Dose: 5 mg Documented By: NEHEMIAH Dexamethasone Sodium Phosphate (Dexamethasone Sod Phosphate 4 Mg/Ml Vial) 6 mg IVPUSH DAILY [facility] Last Admin: 11/11/22 08:23 Dose: 6 mg Documented By: NEHEMIAH Enoxaparin Sodium (Enoxaparin Sodium 40 Mg/0.4 Ml Syringe) 40 mg SUBCUT Q24H [facility] Last Admin: 11/11/22 00:09 Dose: 40 mg Documented By: VINOD Ceftriaxone Sodium 1 gm/ (Sodium Chloride) 50 mls @ 100 mls/hr IV Q24H [facility] Last Infusion: 11/11/22 00:33 Dose: 0 mls/hr Documented By: VINOD Lisinopril (Lisinopril 20 Mg Tablet) 20 mg PO DAILY [facility]; Protocol Last Admin: 11/11/22 08:23 Dose: 20 mg Documented By: NEHEMIAH Melatonin (Melatonin 3 Mg Tablet) 6 mg PO BEDTIME PRN PRN Reason: Insomnia Last Admin: 11/10/22 19:39 Dose: 6 mg Documented By: SERL Ondansetron HCl (Ondansetron Hcl 4 Mg/2 Ml Vial) 4 mg IVPUSH Q8H PRN PRN Reason: Nausea and Vomiting Pharmacy Consult (Consult Rx Perform Med Rec) 1 each MISCELLANE ONCE PRN PRN Reason: Consult order Sodium Chloride (0.9 % Sodium Chloride Flush 3 Ml Syringe) 3 ml IVFLUSH QSHIFT [facility] Last Admin: 11/11/22 08:50 Dose: 3 ml Documented By: NEHEMIAH Labs 11/10/22 04:52 11/11/22 06:46 Labs: Laboratory Results - last 24 hr 11/11/22 06:46 Anion Gap 11 L Estim Creat Clear Calc 53.6 Estimated GFR > 60 Random Glucose 88 Calcium 8.7 Microbiology Microbiology Results: Microbiology 11/09/22 21:22 Blood Culture - Preliminary Blood - Venous No growth after 24 hours. 11/09/22 20:53 Blood Culture - Preliminary Blood - Venous No growth after 24 hours. 11/09/22 21:40 Urine Culture - Preliminary Urine clean catch - Urine kirby top Culture in progress. Assessment and Plan (1) Acute UTI: Status: Acute Plan This is a 72-year-old female with pertinent history of mood disorder, essential hypertension, COPD not on home oxygen, mixed hyperlipidemia who was brought to the emergency department for evaluation of confusion. COVID-19 infection Hypoxia overnight, check sat with ambulation continue on Decadron No concern for bacterial superinfection. Acute UTI IV Rocephin.? Follow urine cultures neg blood cx COPD No exacerbation on admission.? noted hypoxia will check overnight oximetry Continue home inhaler. Acute Toxic metabolic encephalopathy, better secondary to UTI treat underlying infection Hypertensive urgency Resume home antihypertensives added norvasc 2.5 mg Mood disorder Continue home mood stabilizers Mixed hyperlipidemia statin DVT prophylaxis: Lovenox 40 mg daily Full code. Attending Dr. Dave continued hospital stay for?IV antibiotics and supplemental oxygen Time Spent With Patient Time: Total time managing care of this patient today ____ minutes. Quality Stroke Does the patient have a stroke diagnosis?: No VTE Prior VTE?: No VTE Risk Level:: Medical - moderate - high VTE Device Contraindication: Treatment Not Indicated VTE Drug Contraindication: N/A - Med Ordered
[2022-11-11] MEDS: amLODIPine Besylate 2.5 MG TABLET PO (10:32)
--- NOTE | 2022-11-11 13:30 | PC.NURSE ---
RN TO RN REPORT GIVEN TO KENIA. PT/FAMILY AWARE OF PLAN OF CARE FOR TRANSFER TO [facility].
[2022-11-11] MEDS: Nicotine 7 MG PATCH.TD24 TRANSDERMA (15:59)
[2022-11-11] MEDS: Atorvastatin Calcium 40 MG TABLET PO (20:11)
[2022-11-11] MEDS: Melatonin 3 MG TABLET 6 MG PO (20:11)
[2022-11-12 04:00] VITALS: BP 158/65; PULSE 68; RESP 20; TEMP 37.1; O2SAT 98
[2022-11-12 04:45] LABS: ABG Base Excess 8.7 mmol/L; ABG HCO3 34 mmol/L (22-26); ABG pCO2 49 mmHg (32-45); ABG pH 7.44 (7.35-7.45); ABG pO2 52 mmHg (83-108)
[2022-11-12 07:38] VITALS: BP 130/80; PULSE 85; RESP 16; TEMP 36.8
[2022-11-12] MEDS: 0.9 % Sodium Chloride Flush 3 ML SYRINGE IVFLUSH (08:47)
[2022-11-12] MEDS: amLODIPine Besylate 2.5 MG TABLET PO (08:47)
[2022-11-12] MEDS: lisinopriL 20 MG TABLET PO (08:48)
[2022-11-12] MEDS: busPIRone HCl 5 MG TABLET PO (08:48)
[2022-11-12] MEDS: Nicotine 7 MG PATCH.TD24 TRANSDERMA (08:48)
[2022-11-12] MEDS: dexAMETHasone sod phosphate 4 MG/ML VIAL 6 MG IVPUSH (08:48)
--- NOTE | 2022-11-12 09:20 | MHC.CDI.CONC ---
CDI Concurrent Query Documentation Clarification: PHYSICIAN'S DOCUMENTATION REQUEST Date of Query: 11/12/22919 Patient Name: Daisy White Admit Date: 11/09/22 Dear Doctor, A review of the medical record indicates additional documentation may be needed. Please review below and update the documentation accordingly. Clinical Indicators Risk Factors/Clinical Indicators/Treatments Nursing notes Height and Weight 2/5 - Underweight - BMI 18.2 5' 3 in height 46.8kg. If possible, please provide an associated diagnosis related to the abnormal BMI, such as: For a BMI <= 19: Underweight Weight loss Cachexia Anorexia Use of terms such as suspected, likely, concern for, or probable (associated with a specific diagnosis that is being evaluated, monitored, or treated as if it exists) are acceptable and can be coded in the inpatient setting, when documented at the time of discharge. Thank you, Nora Hayes [facility], CDIS Extension: [phone] Please use your independent medical judgment in providing your response. THIS QUERY IS PART OF THE PERMANENT MEDICAL RECORD Other Diagnosis: underweight
--- NOTE | 2022-11-12 10:59 | P.DS_ITS ---
DS: Providers Provider Date of Service: 11/12/22 Date of admission: 11/09/22 22:12 Primary care physician: Unknown Physician Attending physician on discharge: Jace Khan Discharging clinician: Janice Adams DS: Diagnosis Discharge Diagnosis (1) Acute UTI: Status: Acute DS: Summary Hospital Course Hospital Course: HP as per admitting provider This is a 72-year-old female with pertinent history of mood disorder, essential hypertension, COPD not on home oxygen, mixed hyperlipidemia who was brought to the emergency department for evaluation of confusion.? As per the grand daughter at bedside, patient was found to be confused throughout the day.? At her baseline, patient is awake, alert and oriented x3.? The patient does not know why she is in the hospital and reports no new complaints.? The granddaughter endorses increased urinary frequency.? Patient also had fevers and chills throughout the day.? No shortness of breath.? Unable to obtain review of systems . COVID-19 infection. continue on Decadron for total of 10 days. No concern for bacterial superinfection. Acute UTI. Treated with IV Rocephin.?continue ceftin for 3 more days. neg blood and urine cx COPD/emphysema. Hypoxia overnight with multiple episodes of sats in the 70's during the night on overnight oximetry, qualifies for 3 liters continuous. Continue home inhaler. Follow up with Pulmonology as outpatient, seems like symptoms related to long standing COPD rather than covid Acute Toxic metabolic encephalopathy. Resolved. secondary to UTI. Treated with IV Rocephin, home with 3 more days of Ceftin Hypertensive urgency. Resume home antihypertensives. added norvasc 2.5 mg Mood disorder. Continue home mood stabilizers Mixed hyperlipidemia. statin underweight. BMI 18.3. enourage oral intake, add protein to diet. smoker. NRT, encouraged cessation Time Spent with Patient Time attestation: Total time managing care of this patient today ____ minutes. Discharge coordination time: Greater than 30 minutes Quality: Safe Use of Opioids Does Pt have an Active Cancer Diagnosis on the Problem List?: No Quality: Stroke Does the patient have a stroke diagnosis?: No Physical Exam Vital Signs: Vital Signs: Last Vital Signs Temp 98.2 F 11/12/22 07:38 Pulse 85 11/12/22 07:38 Resp 16 02/06/23 07:38 BP 130/80 11/12/22 07:38 Pulse Ox 98 11/12/22 04:00 O2 Del Method 11/12/22 07:38 O2 Flow Rate 3 11/12/22 07:38 Oxygen Flow Rate 2 11/09/22 20:23 BMI result Body Mass Index 18.2 Appearing in no acute distress head is normocephalic atraumatic eyes pupils are PERRLA sclera is anicteric mouth throat mucous membranes are intact and moist neck is supple no lymphadenopathy, no JVD noted lung sounds are clear to auscultation heart regular rate rhythm, clear S1, S2 positive bowel sounds, abdomen is soft, nontender neuro patient is alert x3, no focal deficits DS: Data Data Completed and Pending Labs on day of discharge: Laboratory Results - last 24 hr 11/12/22 04:37 O2 Saturation 83.0 ABG pH at Pt Temp 7.44 ABG pCO2 at Pt Temp 49 H ABG pO2 at Pt Temp 52 L ABG HCO3 34 H ABG Base Excess (Actual) 8.7 Preliminary micro results at discharge 11/09/22 21:22 Blood Culture - Preliminary Blood - Venous No growth after 48 hours. 11/09/22 20:53 Blood Culture - Preliminary Blood - Venous No growth after 48 hours. Discharge Plan Discharge Anticipated Discharge Date/Time: 11/12/22 10:50 Patient Disposition: Home Health Service Discharge Diagnosis: COPD exacerbation Covid 19 UTI Referrals: Dorian Adams MD [Physician] - 1 Week (Follow up for COPD vs emphysema ) Discharge Medications: New amlodipine 2.5 mg Tablet 2.5 mg PO DAILY Qty: 30 0RF Protocol: Hold for SBP< HOLD for SBP < : 90 nicotine 7 mg/24 hr Patch 24 Hour 7 mg transdermal DAILY Qty: 7 0RF albuterol sulfate [Ventolin HFA] 90 mcg/actuation Hfa Aerosol Inhaler 2 puff inhalation RQ4H PRN (Reason: Wheezing) Qty: 8.5 0RF azithromycin 500 mg tablet 500 mg PO DAILY 3 Days Qty: 3 0RF dexamethasone 6 mg tablet 6 mg PO DAILY Qty: 6 0RF cefuroxime axetil 500 mg tablet 500 mg PO BID Qty: 6 0RF Continued buspirone 5 mg tablet 1 - 2 tab PO BID lisinopril 20 mg tablet 1 tab PO DAILY simvastatin 80 mg tablet 1 tab PO BEDTIME budesonide-formoterol [Symbicort] 160-4.5 mcg/actuation HFA aerosol inhaler 1 puff INHALATION BID phenazopyridine 99.5 mg Tablet 99.5 mg PO TID PRN (Reason: Uterine Contractility/Contractions) Discharge Orders: Discharge Order (Routine); Ordered 11/12/22 Ordered By: Janice Adams Diet: Advance to usual diet Activity on Discharge: As tolerated Stand Alone Forms: Patient Portal Discharge page Care Plan Goals: Oxygen therapy 3 Liters continuous Stop smoking or cut down significantly Do not smoke when using oxygen Health Concerns: COPD exacerbation Covid 19 UTI Plan of Treatment: Follow up with commissioned security officer for further workup of COPD/Emphysema Follow up with primary care provider Assessment: Seen discharge summary
[2022-11-12 11:36] VITALS: BP 130/80; PULSE 85
[2022-11-12 11:45] VITALS: PULSE 103; PULSE 95; PULSE 96; O2SAT 88; O2SAT 89; O2SAT 90
--- NOTE | 2022-11-12 12:32 | W.MHC.F2F ---
Service Date Service Date: 11/12/22 Encounter Date of encounter: 11/12/22 Reasons for Services Signs and symptoms assessed: Hypoxia Reason for group home: CV/CP assess and/or care and teach disease management Homebound: Leaving the home is medically contraindicated at this time without the asist of a device and/or another person due th the listed conditions above and below. Reason homebound: unsteady gait / fall risk and shortness of breath at rest Certification: Based on the above findings, I certify that this patient is confined to the home and needs intermittent group home care, physical therapy and/or speech therapy, or continues to need occupational therapy. The patient is under my care, and I have initiated the establishment of the plan of care. The patient will be followed by a physician who will periodically review the plan of care. Time Spent With Patient Time: Total time managing care of this patient today ____ minutes.
--- NOTE | 2022-11-12 12:39 | MHC.CM.PN ---
Addendum entered by Manuela Little 11/12/22 12:59: [facility] has accepted the patient for Home services. Original Note: IMM 11/10/22 Female is discharge today to home. [place] [facility], [facility] is the vendor. Patient arranged for family to provide transport home. Waiting for a response from [facility]NA. VNA services have been ordered. referrals have been made. waitning for an accepting agency.
[2022-11-12 14:43] LABS: ABG Refer to POC result
== END 2022-11-12 12:40 | disposition home health service (06) | DRG 177 ==
LOC: HO.ED 22:02 → HO.EDOVER 22:28 → HO.IMC 11-11 13:10
PROVIDERS: Physician Assistant Medical; Admitting Provider Student in an Organized Health Care Education/Training Program; Emergency Provider Student in an Organized Health Care Education/Training Program; Visit Provider Nurse Practitioner Acute Care
DX: U07.1 COVID-19 (principal); G92.8 Other toxic encephalopathy; J96.01 Acute respiratory failure with hypoxia; N39.0 Urinary tract infection, site not specified; G91.2 (Idiopathic) normal pressure hydrocephalus; Z68.1 Body mass index [BMI] 19.9 or less, adult; J43.9 Emphysema, unspecified; E78.2 Mixed hyperlipidemia; I16.0 Hypertensive urgency; R63.6 Underweight; I10 Essential (primary) hypertension; F39 Unspecified mood [affective] disorder; F17.210 Nicotine dependence, cigarettes, uncomplicated; Z71.6 Tobacco abuse counseling; Z79.899 Other long term (current) drug therapy
CPT/HCPCS: 0241U; 36415; 36600; 70450; 71045; 71046; 80048; 80053; 81001; 82803; 83605; 83735; 85025; 87040; 87086; 93005; 94640; 94762; 97161; 99285; J0696; J1100; J1650